=== PATIENT | male | born 1990 | race Caucasian/White ===

== ENCOUNTER 2016-11-23 11:05 | Emergency (ER) | payer BC, OTHER, SELFPAY ==
[~2016-11-23] VITALS: Ht 188 cm; Wt 77.3 kg
[2016-11-23] MEDS ORDERED: NAPROXEN 250 MG TAB PO ONE (11:30)
[2016-11-23 12:51] VITALS: BP 134/86
--- NOTE | 2016-11-25 16:54 | REP ---
LEFT HAND COMPLETE: 11/23/2016. Clinical history: Blunt trauma. Pain in the fourth metacarpal. Four views show the carpal bones intact, their joint spaces preserved. That portion of distal radius and ulna included are unremarkable. CMC and MCP joints are normal. There is no visible or displaced carpal bone fracture. No soft tissue swelling over the dorsal aspect of the hand and wrist. MCP joints, IP joints and phalanges intact. Impression: 1. No fracture, avulsion, subluxation or other acute finding. Signed by Tj Pham MD 11/25/2016 05:13 P
== END 2016-11-23 12:52 | disposition home or self-care (01) ==
LOC: M ED 11:05
DX: S60.222A Contusion of left hand, initial encounter (principal); F17.210 Nicotine dependence, cigarettes, uncomplicated; X58.XXXA Exposure to other specified factors, initial encounter; Y92.018 Other place in single-family (private) house as the place of occurrence of the external cause; Y99.9 Unspecified external cause status; Y93.9 Activity, unspecified

== ENCOUNTER → 2017-08-08 | Outpatient (REF) | payer BC ==
[2017-08-08 14:06] LABS: HIV 1&2 SCREEN CENTAUR NEGATIVE (NEGATIVE)
[2017-08-12 00:08] LABS: HSV TYPE I IgM AB <1:10 titer (<1:10); HSV TYPE II IgG SPECIFIC <0.91 index (0.00-0.90); HSV TYPE II IgM ABY <1:10 titer (<1:10)
== END ==
LOC: M SFHCPLAZ 09:42
DX: N48.89 Other specified disorders of penis (principal)
CPT/HCPCS: 86695

== ENCOUNTER → 2017-11-03 | Outpatient (REF) | payer BC ==
[2017-11-03 16:23] LABS: ALBUMIN 4.4 GM/DL (3.2-5.2); ALBUMIN/GLOBULIN RATIO 1.22 (1.00-1.93); ALKALINE PHOSPHATASE 49 U/L (45-117); ALT/SGPT 25 U/L (12-78); ANION GAP 10 MEQ/L (8-16); AST/SGOT 14 U/L (7-37); BILIRUBIN,TOTAL 0.3 MG/DL (0.2-1.0); BLOOD UREA NITROGEN 15 MG/DL (7-18); CALCIUM LEVEL 9.3 MG/DL (8.5-10.1); CARBON DIOXIDE LEVEL 28 MEQ/L (21-32); CHLORIDE LEVEL 103 MEQ/L (98-107); CREATININE FOR GFR 0.79 MG/DL (0.70-1.30); GLOMERULAR FILTRATION RATE > 60.0 (>60); GLUCOSE, FASTING 81 MG/DL (70-100); SODIUM LEVEL 141 MEQ/L (136-145)
== END ==
LOC: M SFHCPLAZ 13:48
DX: Z13.89 Encounter for screening for other disorder (principal)
CPT/HCPCS: 80053